=== PATIENT | female | born 1990 | race Caucasian/White ===

== ENCOUNTER 2025-09-18 14:23 | Emergency (ER) | payer OTHER, SELFPAY ==
[2025-09-18 14:27] VITALS: BP 143/98
--- NOTE | 2025-09-18 15:56 | ED.GENMED ---
History of Present Illness
General
Chief Complaint: Allergic Reaction
Source: patient and spouse
Exam Limitations: none
Time Seen by Provider: 09/18/25 15:37
Nursing documentation reviewed up to this point in time: agreed with
History of Present Illness
History of Present Illness:
35-year-old female presents with generalized pruritus. Patient reports symptoms have been ongoing since July. She describes generalized pruritus that has been worse in her hands but also on her chest and back. She says she will wake up with
some puffiness around her eyes, lately has had some puffiness around her ankles. She says she has itching of her scalp. She says she has been seen by multiple people for this including a vice president & general manager [employer] [place] twice and was told that it was not due to
insect/infestation and that it may be allergic. She feels very frustrated that she does not have a clear cause for her symptoms and so she came to the ER to be reassessed. She denies any new detergents, skin care products but she says she has been
washing her hair more frequently recently. She did switch to a new laundry detergent recently.
Past History
Past History
ED Past Medical History: None
Social History
Tobacco: Smoker
Alcohol: Occasional
Drug: Marijuana
Personal: Single
Living: with family
Review of Systems
Review of Systems
All Other Systems: ROS reviewed and negative except as documented in HPI and ROS
Constitutional: Denies fever
Skin: Reports itching; Denies rash
Phy Exam
Physical Exam
Physical Exam:
General: Awake, alert, oriented x3; somewhat anxious but in no acute distress
Head: Normocephalic, atraumatic
Eyes: Conjunctiva normal, sclera anicteric, no periorbital edema noted
Throat: Airway intact, handling secretions, no oral lesions noted
Neck: Trachea midline, supple without meningismus
Lungs: Clear to auscultation bilaterally, no wheezing, rales, rhonchi
Heart: Regular rate and rhythm, no murmurs, gallops, or rubs
Abd: Soft, non distended, nontender
Neuro: Grossly intact
Skin: Skin on the hands is dry and somewhat cracked and she has some dry skin around the ankles and the exposed portion just above her sock; no rash otherwise noted, no hives
Extremities: No edema in extremities, equal pulses in all extremities
Scores
Heart Failure Risk
Heart Failure Risk Score: Not Applicable
Heart Score for Chest Pain Patients
STEMI patient?: Not applicable
Withdrawal Assessment of Alcohol
Withdrawal Assessment Completed?: Not applicable
Course
Vital Signs
Initial and Last Documented VS:
Initial Vital Signs
Temp Pulse Resp BP Pulse Ox
36.7 C 87 16 143/98 100
09/18/25 14:27 09/18/25 14:27 09/18/25 14:27 09/18/25 14:27 09/18/25 14:27
Last Documented Vital Signs
Temp Pulse Resp BP Pulse Ox
36.7 C 87 16 143/98 100
09/18/25 14:27 09/18/25 14:27 09/18/25 14:27 09/18/25 14:27 09/18/25 15:57
MDM/Problems Addressed
Differential Diagnosis Includes:
Scabies, fleas, lice, dry skin, eczema, allergic dermatitis/contact
MDM/Problems Addressed:
35-year-old female presents with generalized pruritus for the past few months, itchiness of the scalp as described above. Has seen multiple doctors without a clear diagnosis but was told it was not likely to be infestation. Overall I tend to agree
it seems like she has dry skin here. Her says that they recently sealed up the house and so it was been warmer in house. She says she has been washing her hair recently and she regularly washes her hands and her hands appear to be dry and
cracked. Overall I suspect her symptoms are most likely from dry skin. Advised her to get a humidifier, moisturize skin and to reevaluate her symptoms at that point. Stable for discharge to follow-up with her primary doctor.
*Pulse Oximetry
SaO2: 100
Oxygen Mode of Delivery: Room air
Patient hypoxic: no (100%)
*Critical Care Note
Total Time (30-74mins, 75-104mins- exclusive of procedures): Not Applicable
Data Reviewed
Source: patient and spouse
ED Attending Note
-
Portions of this chart may have been created with voice recognition software.� Occasional wrong word or��sound alike� substitutions may have occurred due to the inherent limitations of voice recognition software.
Discharge Plan
Departure
Patient Disposition: Home (Routine Discharge)
Date of Disposition: 09/18/25
Time of Disposition: 15:55
Patient with high blood pressure during this ER visit?: Yes
Discharge Problem:
Pruritus of skin, Dry skin
Instructions: Itchy skin
Prescriptions:
No Action
No Meds [No Current Medications]
0
Referrals:
Justyn Anderson MD, Resident [Family Provider, General] - Follow up in 1 week
Activity Restrictions/Additional Instructions:
Thank you for visiting the Emergency Department at [facility].
1. Please schedule a follow up appointment as directed. Call first thing tomorrow morning to make an appointment.
2. If indicated, please take your medications as instructed and indicated on discharge paperwork.
3. If any of your symptoms do not improve, or persist, or become more severe within 6-12 hours, please return to the emergency department for further care.
4. Please return to the emergency department if you develop a headache, neck pain/stiffness, fever greater than 100.4F, chest pain, shortness of breath, persistent nausea, vomiting, slurred speech, difficulty walking, numbness/tingling, weakness,
signs of infection or any other symptoms that are worrisome to you.
Please call [phone] if you have any questions.
Interventions
Interventions:
*Neglect/Abuse Screening Last Done: 09/18/25 14:27
*Risk Screen - Suicide (C-SSRS) Last Done: 09/18/25 14:27
ED-Skin Assessment Last Done: 09/18/25 16:08
Discharge Date and Time
Discharge Date/Time: 09/18/25 16:08
Print Language: UPPER SORBIAN
== END 2025-09-18 16:08 | disposition home or self-care (01) ==
LOC: EMR 14:23
PROVIDERS: EMERGENCY PHYSICIAN Emergency Medicine; FAMILY PHYSICIAN Student in an Organized Health Care Education/Training Program
DX: L29.9 Pruritus, unspecified (principal); L85.3 Xerosis cutis; F17.200 Nicotine dependence, unspecified, uncomplicated
CPT/HCPCS: 99282